=== PATIENT | female | born 1955 | race Caucasian/White ===

== ENCOUNTER → 2016-08-03 | Outpatient (CLI) | payer OTHER ==
[~2016-08-03] MED LIST: ASPIRINEC; BENAZEPRIL; COMBIVENT INH14.7 GM; DUONEB 2.5-0.5 M3 ML; LOPRESSOR; METFORMIN; NORVASC; PRILOSEC
--- NOTE | ~2016-08-03 | CT55 ---
[facility] A Service of [facility] RADIOLOGY TEXT RESULTS PATIENT: FARRAH LEWIS LOCATION: [facility] : 59 UNIT #: [id number] AGE: [address]: Dave Lowery MD SEX: F ORDER DR: [id number] [facility]. [place], [place] [address] [id number] O MR#: [id number] Acc #: [id number] NAME: FARRAH LEWIS : 1955 SEX: F STUDY DATE/TIME: 08/03/2016 16:28 UNIT: [facility] ROOM: STUDY DESCRIPTION: CT Chest W Con Attending Physician: Dave Lowery M.D. Referring Physician: Dave Lowery M.D. Ordering Physician: Dave Lowery M.D. Primary Care Physician: Davy Pradhan M.D. MEDICAL IMAGING REPORT This report is preliminary unless electronic signature is present EXAM CT of the chest with contrast INDICATION Follow up metastatic neck cancer. TECHNIQUE CT of the chest was performed following the administration of IV contrast. Coronal and sagittal reformatted images obtained. Comparison with 02/28/2004. This CT exam was performed with one or more of the following radiation dose reduction techniques: automatic exposure control, adjustment of mA and/or kV according to patient size, and iterative reconstruction. FINDINGS There is no suspicious pulmonary nodule. There is no suspicious lymphadenopathy. Tiny hiatal hernia. No pleural effusion. Limited imaging of the upper abdomen demonstrates a cholecystectomy. Bone windows demonstrate multiple healing rib fractures bilaterally, immediately on the left. IMPRESSION No evidence of metastatic disease. Dictated by... Satish Sorensen M.D. THIS IS AN ELECTRONICALLY VERIFIED REPORT Satish Sorensen M.D. at 08/04/2016 8:57 AM FLOR/racquel TD: 08/04/2016 08:30 [facility] A Service of [facility] RADIOLOGY TEXT RESULTS PATIENT: FAR[facility] LEWIS [id number] 59 UNIT #: [id number] AGE: [address]: Dave Lowery MD SEX: F ORDER DR: JOB #: [id number] MEDICAL IMAGING REPORT Page 1 of 1 COPY
[2016-08-03 15:36] LABS: POC - GFR >60.0 mL/min (>60)
== END | disposition home or self-care (01) ==
LOC: CCAT 14:44
PROVIDERS: Specialist
DX: C79.89 Secondary malignant neoplasm of other specified sites (principal); C80.1 Malignant (primary) neoplasm, unspecified
CPT/HCPCS: 71260; 82565; Q9967